=== PATIENT | female | born 2000 | race Caucasian/White ===

== ENCOUNTER 2019-01-24 23:29 | Emergency (ER) | payer SELFPAY ==
[~2019-01-24] VITALS: Ht 406.4 cm; Wt 111.6 kg
--- NOTE | 2019-01-24 23:35 | NUR ---
patient brought in by ambulance. Patient placed on bedside monitor. VS: BP: 119/63, HR 101, o2sat 97%. Patient denies any pain or discomfort at this time. Patient is pressent with alcohol intoxication, patient has stated that she was drinking alcohol and smoked "wax." patient able to respond to questions. Patient able is poor historian due to intoxication.
[2019-01-24] MEDS ORDERED: ONDANSETRON 4 MG/2 ML VIAL ONE (23:47)
[2019-01-25] MEDS ORDERED: ONDANSETRON 4 MG/2 ML VIAL IV ONE
--- NOTE | 2019-01-25 01:12 | NUR ---
Patient discharged to home in stable conditon. Written and verbal after care instructions given. Patient verbalizes understanding of instructions. patient alert and oriented x4. patient self ambulatory with steady gait. Patient has taken exit care package and personal belongings at discharge.
[2019-01-25 01:13] VITALS: BP 109/70
--- NOTE | 2019-01-25 01:14 | NUR ---
patient consent that her friend will be taking her home at discharge,
== END 2019-01-25 01:14 | disposition home or self-care (01) ==
LOC: ER 23:31
DX: F10.129 Alcohol abuse with intoxication, unspecified (principal); J45.909 Unspecified asthma, uncomplicated; Y90.6 Blood alcohol level of 120-199 mg/100 ml
CPT/HCPCS: 36415; 96374; 99283; G0480; J2405; A4663